=== PATIENT | male | born 1965 | race Caucasian/White ===

== ENCOUNTER 2018-03-09 15:54 | Observation (INO) ==
[2018-03-09] MEDS ORDERED: Sod Chloride 0.9% Inj 1,000 ML IV.SIG ONE (16:04)
--- NOTE | 2018-03-09 16:07 | ED ---
HPI General Chief Complaint: Overdose Stated Complaint: Imer Enriquez Time Seen by Provider: 03/09/18 15:58 Source: patient and EMS Mode of arrival: EMS Limitations: no limitations History of Present Illness HPI Narrative: He is homeless.The patient is a 52-year-old male that was brought in by EMS after ingesting Keppra 500 mg pills throughout the day in an attempt to commit suicide. Patient denies any symptoms at this time was on the street walking and flag down EMS to let them know what happened. He has past medical history significant for alcohol use disorder multiple psychiatric hospitalization with previous suicide attempts. Denies any hallucinations no dizziness no lightheadedness no nausea vomiting or diarrhea no other complaints. MD complaint: Reports intentional overdose Onset (ago): day(s) (through) Related Data Home Medications Medication Instructions Recorded Confirmed levetiracetam [Keppra] 500 mg PO BID 03/09/18 03/09/18 Allergies Allergy/AdvReac Type Severity Reaction Status Date / Time No Known Allergies Allergy Unknown Uncoded 10/23/17 04:45 Review of Systems ROS: all other systems reviewed are negative PMFSH History History Provided By: Patient, Medical Record and Bellman Captain / EMT Medical History Medical History History of traumatic brain injury (Acute) Seizure disorder (Acute) Surgical History Surgical History History of hip surgery (Acute) History of knee surgery (Acute) History of neck surgery (Acute) Family History Family History Other Family history normal Social History Social History Substance History: No History of Abuse Second Hand Smoke Exposure: Yes Smoking Status: Current every day smoker Tobacco Type: Cigarettes How Often Do You Have a Drink Containing Alcohol: 4 or more times a week Recent Travel in [facility] within the Last 8 Weeks: No Recent Out of Country Travel within the Last 8 Weeks: No Exam Narrative Exam Narrative: GENERAL: Alert and oriented no distress SKIN: Focused skin assessment warm/dry. HEAD: Atraumatic. Normocephalic. EYES: Pupils equal and round. No scleral icterus. No injection or drainage. ENT: No nasal bleeding or discharge. Mucous membranes pink and moist. NECK: Trachea midline. No JVD. CARDIOVASCULAR: Regular rate and rhythm. No murmur appreciated. RESPIRATORY: No accessory muscle use. Clear to auscultation. Breath sounds equal bilaterally. GASTROINTESTINAL: Abdomen soft, non-tender, nondistended. Hepatic and splenic margins not palpable. MUSCULOSKELETAL: No obvious deformities. No clubbing. No cyanosis. No edema. NEUROLOGICAL: Awake and alert. No obvious cranial nerve deficits. Motor grossly within normal limits. Normal speech. No tremors PSYCHIATRIC: Appropriate mood and affect; insight and judgment normal. Course Hospital Course: Patient monitored in the ED for several hours. To the fact that he did receive Keppra he will need to be monitored for at least 8 hours as per poison control recommendations. Not somnolent. Stable vitals. No EKG changes. Will admit medically for observation. Reevaluation(s) Reevaluation #1: Comfortably no distress no respiratory depression. Respirations 17/min. Time: 16:42 Consultations Consultation #1: Poison Control Center notified and at this time recommend supportive care admission and observation. Time: 16:13 Initial Documented Vital Signs Temperature 98.9 F 03/09/18 16:08 Pulse Rate 85 03/09/18 16:08 Respiratory Rate 17 03/09/18 16:08 Blood Pressure 175/92 H 03/09/18 16:08 Pulse Oximetry 98 03/09/18 16:08 Last Documented Vital Signs Temperature 98.5 F 03/10/18 03:58 Pulse Rate 71 03/10/18 03:58 Respiratory Rate 17 03/10/18 03:58 Blood Pressure 126/69 03/10/18 03:58 Pulse Oximetry 96 03/10/18 03:58 Critical Care Time Critical Care Time: Yes Total Critical Care Time: 30 Attestation: Aggregate critical care time was 30 minutes. Time to perform other separately billable procedures was not included in the critical care time. My time did not include minutes spent treating any other patients simultaneously or on activities that did not directly contribute to the patient's treatment. The services I provided to this patient were to treat and/or prevent clinically significant deterioration that could result in: I provided critical care services requiring my management, as noted below: Chart data review, documentation time, medication orders and management, vital sign assessments/reviewing monitor data, ordering and reviewing lab tests, ordering and interpreting/reviewing x-rays and diagnostic studies, care of the patient and discussion of the patient with the admitting physicians. Medical Decision Making MDM Narrative Medical decision making narrative: Patient with overdose of Keppra supportive care recommended by poison control center. Hemodynamically stable no QTc prolongation. No respiratory depression. Hydrated will be admitted under Malcolm act for psychiatric evaluation when medically cleared. Keppra level have been sent. No somnolence no respiratory distress no respiratory depression alert and oriented ambulating in the ED without any problems placed under Malcolm act and was admitted for monitoring at least 8 hours prior to psychiatric evaluation as per Poison Control Center recommendations Medical Screen Exam Complete: Yes Emergency Medical Condition: Yes Lab Data Lab results reviewed: Yes I reviewed the patient's lab results. Result diagrams: 03/10/18 04:40 03/10/18 04:40 Lab Results 03/09/18 03/09/18 03/09/18 Range/Units 16:20 16:20 16:20 WBC 10.9 (4.0-11.0) th/mm3 RBC 4.57 (4.50-5.90) mil/mm3 Hgb 14.2 (13.0-17.0) gm/dL Hct 40.9 (39.0-51.0) % MCV 89.5 (80.0-100.0) fL MCH 31.0 (27.0-34.0) pg MCHC 34.6 (32.0-36.0) % RDW 15.3 (11.6-17.2) % Plt Count 307 (150-450) th/mm3 MPV 7.0 (7.0-11.0) fL Neut % (Auto) 72.8 H (16.0-70.0) % Lymph % (Auto) 17.0 (9.0-44.0) % [place] % (Auto) 8.1 H (0.0-8.0) % Eos % (Auto) 1.5 (0.0-4.0) % Baso % (Auto) 0.6 (0.0-2.0) % Neut # (Auto) 7.9 H (1.8-7.7) th/mm3 Lymph # (Auto) 1.9 (1.0-4.8) th/mm3 [place] # (Auto) 0.9 (0.0-0.9) th/mm3 Eos # (Auto) 0.2 (0.0-0.4) th/mm3 Baso # (Auto) 0.1 (0.0-0.2) th/mm3 WBC Differential . Differential Comment Auto diff final Sodium 137 (136-145) meq/L Potassium 3.8 (3.5-5.1) meq/L Chloride 105 (98-107) meq/L Carbon Dioxide 22.8 (21.0-32.0) meq/L Anion Gap 9 (5-15) meq/L BUN 5 L (7-18) mg/dL Creatinine 0.75 (0.60-1.30) mg/dL Estimated GFR Greater than 89 (>89) mL/min Random Glucose 86 (74-106) mg/dL Calcium 8.6 (8.5-10.1) mg/dL Total Bilirubin 0.5 (0.2-1.0) mg/dL AST 29 (15-37) U/L ALT 20 (12-78) U/L Alkaline Phosphatase 59 (45-117) U/L Total Creatine Kinase 78 (39-308) U/L Total Protein 8.7 H (6.4-8.2) g/dL Albumin 3.6 (3.4-5.0) g/dL TSH 1.980 (0.358-3.740) uIU/mL Salicylates 3.4 (2.8-20.0) mg/dL Acetaminophen Less than 2.0 L (10.0-30.0) mcg/mL Serum Alcohol Less than 3 (0-5) mg/dL 03/10/18 03/10/18 Range/Units 04:40 04:40 WBC 8.7 (4.0-11.0) th/mm3 RBC 4.32 L (4.50-5.90) mil/mm3 Hgb 13.5 (13.0-17.0) gm/dL Hct 38.8 L (39.0-51.0) % MCV 89.9 (80.0-100.0) fL MCH 31.3 (27.0-34.0) pg MCHC 34.8 (32.0-36.0) % RDW 15.2 (11.6-17.2) % Plt Count 235 (150-450) th/mm3 MPV 7.6 (7.0-11.0) fL Neut % (Auto) 61.6 (16.0-70.0) % Lymph % (Auto) 26.0 (9.0-44.0) % [place] % (Auto) 9.9 H (0.0-8.0) % Eos % (Auto) 2.1 (0.0-4.0) % Baso % (Auto) 0.4 (0.0-2.0) % Neut # (Auto) 5.3 (1.8-7.7) th/mm3 Lymph # (Auto) 2.3 (1.0-4.8) th/mm3 [place] # (Auto) 0.9 (0.0-0.9) th/mm3 Eos # (Auto) 0.2 (0.0-0.4) th/mm3 Baso # (Auto) 0.0 (0.0-0.2) th/mm3 WBC Differential . Differential Comment Auto diff final Sodium 140 (136-145) meq/L Potassium 3.8 (3.5-5.1) meq/L Chloride 107 (98-107) meq/L Carbon Dioxide 25.1 (21.0-32.0) meq/L Anion Gap 8 (5-15) meq/L BUN 8 (7-18) mg/dL Creatinine 0.72 (0.60-1.30) mg/dL Estimated GFR Greater than 89 (>89) mL/min Random Glucose 90 (74-106) mg/dL Calcium 8.8 (8.5-10.1) mg/dL Total Bilirubin 0.5 (0.2-1.0) mg/dL AST 25 (15-37) U/L ALT 17 (12-78) U/L Alkaline Phosphatase 53 (45-117) U/L Total Creatine Kinase (39-308) U/L Total Protein 7.4 D (6.4-8.2) g/dL Albumin 3.0 L D (3.4-5.0) g/dL TSH (0.358-3.740) uIU/mL Salicylates (2.8-20.0) mg/dL Acetaminophen (10.0-30.0) mcg/mL Serum Alcohol (0-5) mg/dL Imaging Data Radiologist's impression: Chest X-Ray 03/09/18 16:02 CONCLUSION: No acute cardiopulmonary disease. Head CT 03/09/18 16:21 CONCLUSION: 1. Unremarkable and stable CT scan of the brain compared to the prior study. . Pelvis X-Ray 03/09/18 16:21 CONCLUSION: 1. No acute fracture or joint dislocation. 2. Left hip prosthesis in place. ECG Data Interpretation: Normal sinus rhythm with occasional PVCs 90 bpm MT interval 188 ms QTC 415 ms normal axis no signs of acute ischemia per Discharge Plan Discharge Disposition Patient Disposition: 30 Still Patient Discharge Condition Condition: Stable Discharge Details Diagnosis: Drug overdose, Suicide attempt Physicians Team ED Provider: Pete Lee Primary Care Provider: Primary Care Hafsa Zamora Attending Provider: Kathleen Willson Other Providers: Marvel Wood Status ED Status: Left Department Discharge Information Discharge Date/Time: 03/09/18 21:51
--- NOTE | 2018-03-09 16:36 | XR ---
EXAM DATE: 03/09/2018 4:02 PM EDT AGE/SEX: 52 years / Male INDICATIONS: Possible overdose, short of breath CLINICAL DATA: This is the patient's initial encounter. Patient reports that signs and symptoms have been present for 1 day and indicates a pain score of 0/10. MEDICAL/SURGICAL HISTORY: Cirrhosis. Hypertension. Seizures. Non-responsive. COMPARISON: No prior exams available for comparison. FINDINGS: A single AP view of the chest demonstrates the lungs to be symmetrically aerated without evidence of mass, infiltrate or effusion. The cardiomediastinal contours are unremarkable. Multiple left-sided r ib fractures, appears old CONCLUSION: No acute cardiopulmonary disease. Electronically signed by: Graham Arrington MD 03/09/2018 4:35 PM EDT
[2018-03-09 16:48] LABS: Baso # (Auto) 0.1 th/mm3 (0.0-0.2); Baso % (Auto) 0.6 % (0.0-2.0); Eos # (Auto) 0.2 th/mm3 (0.0-0.4); Eos % (Auto) 1.5 % (0.0-4.0); Hematocrit 40.9 % (39.0-51.0); Hemoglobin 14.2 gm/dL (13.0-17.0); Lymph # (Auto) 1.9 th/mm3 (1.0-4.8); Mean Corpuscular HGB Conc 34.6 % (32.0-36.0); Mean Corpuscular Volume 89.5 fL (80.0-100.0); Mono # (Auto) 0.9 th/mm3 (0.0-0.9); Mono % (Auto) 8.1 % (0.0-8.0); Neut # (Auto) 7.9 th/mm3 (1.8-7.7); Neut % (Auto) 72.8 % (16.0-70.0); Platelet Count 307 th/mm3 (150-450); Red Blood Count 4.57 mil/mm3 (4.50-5.90); Red Cell Distribution Width 15.3 % (11.6-17.2); White Blood Count 10.9 th/mm3 (4.0-11.0)
--- NOTE | 2018-03-09 16:56 | XR ---
EXAM DATE: 03/09/2018 4:21 PM EDT AGE/SEX: 52 years / Male INDICATIONS: Pelvic pain after fall. CLINICAL DATA: This is the patient's initial encounter. Patient reports that signs and symptoms have been present for 1 day and indicates a pain score of 2/10. MEDICAL/SURGICAL HISTORY: None. . Left hip replacement. COMPARISON: No prior exams available for comparison. FINDINGS: Examination of the pelvis demonstrates no evidence of fracture or dislocation. There is a left hip p rosthesis in place. There is good position alignment of the prosthesis. There is good alignment of th e SI joints and pubic symphysis. Bony mineralization is normal. There is no widening of the sacroili ac joints. No foreign body is identified. CONCLUSION: 1. No acute fracture or joint dislocation. 2. Left hip prosthesis in place. Electronically signed by: Cristino Billingsley MD 03/09/2018 4:54 PM EDT
[2018-03-09 17:16] LABS: Albumin 3.6 g/dL (3.4-5.0); Anion Gap 9 meq/L (5-15); Aspartate Aminotransferase 29 U/L (15-37); Blood Urea Nitrogen 5 mg/dL (7-18); Calcium 8.6 mg/dL (8.5-10.1); Carbon Dioxide 22.8 meq/L (21.0-32.0); Chloride 105 meq/L (98-107); Glomerular Filtration Rate Greater Than 89 mL/min (>89); Glucose,Random 86 mg/dL (74-106); Potassium 3.8 meq/L (3.5-5.1); Sodium 137 meq/L (136-145)
[2018-03-09 17:28] LABS: Alanine Aminotransferase 20 U/L (12-78); Alkaline Phosphatase 59 U/L (45-117); Total Protein 8.7 g/dL (6.4-8.2)
[2018-03-09 17:29] LABS: Creatine Kinase 78 U/L (39-308)
--- NOTE | 2018-03-09 17:35 | CT ---
EXAM DATE: 03/09/2018 4:25 PM EDT AGE/SEX: 52 years / Male INDICATIONS: Fall hit head contusion CLINICAL DATA: This is the patient's initial encounter. Patient reports that signs and symptoms have been present for 1 day and indicates a pain score of 2/10. MEDICAL/SURGICAL HISTORY: None. None. RADIATION DOSE: 56.35 CTDI (mGy) COMPARISON: [facility] [place], 01/17/2017. . TECHNIQUE: CT of the head without contrast. Using automated exposure control and adjustment of the mA and/or kV according to patient size, radiation dose was kept as low as reasonably achievable to ob tain optimal diagnostic quality images. DICOM format image data is available electronically for revi ew and comparison. FINDINGS: Cerebrum: The ventricles are normal for age. No evidence of midline shift, mass lesion, hemorrhage or acute infarction. No extraaxial fluid collections are seen. Posterior Fossa: The cerebellum and brainstem are intact. The 4th ventricle is midline. The cerebe llopontine angle is unremarkable. Extracranial: The visualized portion of the orbits is intact. Skull: The calvaria is intact. No evidence of skull fracture. CONCLUSION: 1. Unremarkable and stable CT scan of the brain compared to the prior study. . Electronically signed by: Cristino Billingsley MD 03/09/2018 5:33 PM EDT
[2018-03-09] MEDS ORDERED: Bisacodyl 10 MG Supp RECTAL PRN (19:46)
--- NOTE | 2018-03-09 19:53 | P.HP ---
History of Present Illness Service: [facility] Primary Care Physician: No Primary Care Physician History of Present Illness: 52-year-old male with a past medical history significant for previous TBI and seizure disorder presents to the emergency department for evaluation of an intentional overdose. The patient reports he took approximately 70 pills of 500 mg Keppra. He states he was attempting to kill himself. The patient says that he wants to because of his situation and states that the government is responsible. He reports he has body aches "all over." He denies any chest pain or shortness of breath. No abdominal pain. No nausea/vomiting/diarrhea. No fevers/chills. No lateralizing signs/symptoms. Review of Systems All other systems reviewed negative except as stated in HPI PMFSH - History History Provided By: Patient, Medical Record, Air Conditioning Service Technician / EMT - Medical History Medical History: Medical History (Last Updated 03/09/18 @ 19:51 by Shannon Godoy MD) History of traumatic brain injury Seizure disorder - Surgical History Surgical History: Surgical History (Last Updated 03/09/18 @ 19:51 by Shannon Godoy MD) History of hip surgery History of knee surgery History of neck surgery - Family History Family History: Family History (Last Updated 03/09/18 @ 19:51 by Shannon Godoy MD) Other Family history normal - Tobacco History Second Hand Smoke Exposure: Yes Tobacco Use In Past 30 Days: Yes Smoking Status: Current every day smoker Tobacco Type: Cigarettes - Alcohol History How Often Do You Have a Drink Containing Alcohol: 4 or more times a week - Substance Use History Substance History: No History of Abuse - Travel History Recent Travel in the [facility] Within the Last 8 Weeks: No Recent Travel Out of the Country Within the Last 8 Weeks: No - Immunization History Tetanus Immunization: Unsure Medications and Allergies Active Medications: Active Medications Al Hydroxide/Mg Hydroxide (Milk Of Magnesia Liq) 30 ml PO Q12H PRN PRN Reason: Mild Constipation Bisacodyl (Dulcolax Supp) 10 mg RECTAL DAILY PRN PRN Reason: SEVERE CONSITIPATION Lactulose (Lactulose Liq) 30 ml PO DAILY PRN PRN Reason: SEVERE CONSITIPATION Allergies Allergy/AdvReac Type Severity Reaction Status Date / Time No Known Allergies Allergy Unknown Uncoded 10/23/17 04:45 Exam Vital signs: Vital Signs 03/09/18 16:08 03/09/18 17:55 Temperature 98.9 F Pulse Rate 85 75 Respiratory Rate 17 17 Blood Pressure 175/92 H 175/92 H Pulse Oximetry 98 100 Intake & Output 03/09/18 03/09/18 03/10/18 06:59 18:59 06:59 Weight 81.647 kg Narrative: Gen.: No acute distress Head: Normocephalic. Atraumatic. EENT: Pupils equal round and reactive to light. Nose without drainage. Airway intact. Throat without injection. Cardiovascular: Regular rate and rhythm. No murmurs, rubs or gallops. Respiratory: Lungs clear to auscultation bilaterally. No wheezes or rhonchi. Abdomen: Soft, nontender, nondistended. No peritoneal signs. Musculoskeletal: No gross deformities. No edema. Skin: No obvious rashes or erythema. Neuro: Sensory and motor grossly intact. Cranial nerves II through XII grossly intact. Results - Labs CBC & Chem 7: 03/09/18 16:20 03/09/18 16:20 Labs: Laboratory Results - last 24 hr 03/09/18 03/09/18 03/09/18 16:20 16:20 16:20 WBC 10.9 RBC 4.57 Hgb 14.2 Hct 40.9 MCV 89.5 MCH 31.0 MCHC 34.6 RDW 15.3 Plt Count 307 MPV 7.0 Neut % (Auto) 72.8 H Lymph % (Auto) 17.0 [place] % (Auto) 8.1 H Eos % (Auto) 1.5 Baso % (Auto) 0.6 Neut # (Auto) 7.9 H Lymph # (Auto) 1.9 [place] # (Auto) 0.9 Eos # (Auto) 0.2 Baso # (Auto) 0.1 WBC Differential . Differential Comment Auto diff final Sodium 137 Potassium 3.8 Chloride 105 Carbon Dioxide 22.8 Anion Gap 9 BUN 5 L Creatinine 0.75 Estimated GFR Greater than 89 Random Glucose 86 Calcium 8.6 Total Bilirubin 0.5 AST 29 ALT 20 Alkaline Phosphatase 59 Total Creatine Kinase 78 Total Protein 8.7 H Albumin 3.6 TSH 1.980 Salicylates 3.4 Acetaminophen Less than 2.0 L Serum Alcohol Less than 3 - Imaging Impressions Chest X-Ray 03/09/18 16:02 CONCLUSION: No acute cardiopulmonary disease. Head CT 03/09/18 16:21 CONCLUSION: 1. Unremarkable and stable CT scan of the brain compared to the prior study. . Pelvis X-Ray 03/09/18 16:21 CONCLUSION: 1. No acute fracture or joint dislocation. 2. Left hip prosthesis in place. Caprini VTE Risk Assessment Caprini VTE Risk Assessment: No/Low Risk (score <= 1) Caprini Risk Assessment Model: Point Value = 1 Point Value = 2 Point Value = 3 Point Value = 5 Age 41-60 Minor surgery BMI > 25 kg/m2 Swollen legs Varicose veins or History of unexplained or recurrent spontaneous Oral contraceptives or hormone replacement Sepsis (< 1 month) Serious lung disease, including pneumonia (< 1 month) Abnormal pulmonary function Acute myocardial infarction Congestive heart failure (< 1 month) History of inflammatory bowel disease Medical patient at bed rest Age 61-74 Arthroscopic surgery Major open surgery (> 45 min) Laparoscopic surgery (> 45 min) Malignancy Confined to bed (> 72 hours) Immobilizing plaster cast Central venous access Age >= 75 History of VTE Family history of VTE Factor V Leiden Prothrombin [id number] Lupus anticoagulant Anticardiolipin antibodies Elevated serum homocysteine Heparin-induced thrombocytopenia Other congenital or acquired thrombophilia Stroke (< 1 month) Elective arthroplasty Hip, pelvis, or leg fracture Acute spinal cord injury (< 1 month) Prophylaxis Regimen: Total Risk Factor Score Risk Level Prophylaxis Regimen 0-1 Low Early ambulation 2 Moderate Order ONE of the following: *Sequential Compression Device (SCD) *Heparin 5000 units SQ BID 3-4 Higher Order ONE of the following medications: *Heparin 5000 units SQ TID *Enoxaparin/Lovenox 40 mg SQ daily (WT < 150 kg, CrCl > 30 mL/min) *Enoxaparin/Lovenox 30 mg SQ daily (WT < 150 kg, CrCl > 10-29 mL/min) *Enoxaparin/Lovenox 30 mg SQ BID (WT < 150 kg, CrCl > 30 mL/min) AND/OR *Sequential Compression Device (SCD) 5 or more Highest Order ONE of the following medications: *Heparin 5000 units SQ TID (Preferred with Epidurals) *Enoxaparin/Lovenox 40 mg SQ daily (WT < 150 kg, CrCl > 30 mL/min) *Enoxaparin/Lovenox 30 mg SQ daily (WT < 150 kg, CrCl > 10-29 mL/min) *Enoxaparin/Lovenox 30 mg SQ BID (WT < 150 kg, CrCl > 30 mL/min) AND *Sequential Compression Device (SCD) Assessment and Plan - Plan Assessment/plan: 1. Intentional overdose/suicidal ideation Patient reports he is still actively suicidal Sitter Psychiatry consulted, appreciate assistance Poison control contacted for Keppra overdose and recommended supportive care and observation Keppra level pending 2. Seizure disorder Holding home Keppra Monitor FEN Regular diet Electrolytes: Monitor and replete as needed
[2018-03-09] MEDS: Senna/Docusate Sodium 8.6/50 MG Tablet PO SCH (22:01)
[2018-03-10 06:23] LABS: Baso % (Auto) 0.4 % (0.0-2.0); Eos # (Auto) 0.2 th/mm3 (0.0-0.4); Eos % (Auto) 2.1 % (0.0-4.0); Hematocrit 38.8 % (39.0-51.0); Hemoglobin 13.5 gm/dL (13.0-17.0); Lymph # (Auto) 2.3 th/mm3 (1.0-4.8); Mean Corpuscular HGB Conc 34.8 % (32.0-36.0); Mean Corpuscular Hemoglobin 31.3 pg (27.0-34.0); Mean Corpuscular Volume 89.9 fL (80.0-100.0); Mean Platelet Volume 7.6 fL (7.0-11.0); Mono # (Auto) 0.9 th/mm3 (0.0-0.9); Mono % (Auto) 9.9 % (0.0-8.0); Neut # (Auto) 5.3 th/mm3 (1.8-7.7); Neut % (Auto) 61.6 % (16.0-70.0); Platelet Count 235 th/mm3 (150-450); Red Blood Count 4.32 mil/mm3 (4.50-5.90); Red Cell Distribution Width 15.2 % (11.6-17.2); White Blood Count 8.7 th/mm3 (4.0-11.0)
[2018-03-10 06:48] LABS: Alanine Aminotransferase 17 U/L (12-78); Alkaline Phosphatase 53 U/L (45-117); Anion Gap 8 meq/L (5-15); Aspartate Aminotransferase 25 U/L (15-37); Blood Urea Nitrogen 8 mg/dL (7-18); Calcium 8.8 mg/dL (8.5-10.1); Carbon Dioxide 25.1 meq/L (21.0-32.0); Chloride 107 meq/L (98-107); Glomerular Filtration Rate Greater Than 89 mL/min (>89); Glucose,Random 90 mg/dL (74-106); Potassium 3.8 meq/L (3.5-5.1); Sodium 140 meq/L (136-145); Total Protein 7.4 g/dL (6.4-8.2)
[2018-03-10 08:28] VITALS: RESP 16; TEMP 98.3
--- NOTE | 2018-03-10 09:35 | P.PNIM ---
Subjective Interval history: f/u; suicidal attempt in no acute distress. looks comfortable. says that still has some suicidal thoughts. Physical Exam Vital signs: Vital Signs 03/09/18 16:08 03/09/18 17:55 03/09/18 20:00 Temperature 98.9 F 98.6 F Pulse Rate 85 75 80 Respiratory Rate 17 17 17 Blood Pressure 175/92 H 175/92 H 113/66 Pulse Oximetry 98 100 97 03/10/18 00:00 03/10/18 03:58 03/10/18 04:22 Temperature 98.7 F 98.5 F Pulse Rate 70 71 67 Respiratory Rate 17 17 Blood Pressure 119/70 126/69 Pulse Oximetry 96 96 03/10/18 08:00 Temperature 98.3 F Pulse Rate 72 Respiratory Rate 16 Blood Pressure 121/75 Pulse Oximetry 96 Intake & Output 03/09/18 03/10/18 03/10/18 18:59 06:59 18:59 Intake Total 1150 / 1150 Balance 1150 / 1150 Weight 81.647 kg 81.647 kg Intake: IV 1000 / 1000 Oral 150 / 150 Other: # Voids 1 Weight On Admission 81.647 kg - Constitutional no acute distress - Routine Respiratory Exam Present: CTA bilaterally - Routine Cardiovascular Exam Present: RRR - Routine Abdominal Exam Present: soft - Routine Extremities Exam Comments: no pedal edema. - Routine Neurological Exam Present: alert, oriented X3 Results - Labs CBC & Chem 7: 03/10/18 04:40 03/10/18 04:40 Laboratory Results - last 24 hr 03/09/18 03/09/18 03/09/18 16:20 16:20 16:20 WBC 10.9 RBC 4.57 Hgb 14.2 Hct 40.9 MCV 89.5 MCH 31.0 MCHC 34.6 RDW 15.3 Plt Count 307 MPV 7.0 Neut % (Auto) 72.8 H Lymph % (Auto) 17.0 [place] % (Auto) 8.1 H Eos % (Auto) 1.5 Baso % (Auto) 0.6 Neut # (Auto) 7.9 H Lymph # (Auto) 1.9 [place] # (Auto) 0.9 Eos # (Auto) 0.2 Baso # (Auto) 0.1 WBC Differential . Differential Comment Auto diff final Sodium 137 Potassium 3.8 Chloride 105 Carbon Dioxide 22.8 Anion Gap 9 BUN 5 L Creatinine 0.75 Estimated GFR Greater than 89 Random Glucose 86 Calcium 8.6 Total Bilirubin 0.5 AST 29 ALT 20 Alkaline Phosphatase 59 Total Creatine Kinase 78 Total Protein 8.7 H Albumin 3.6 TSH 1.980 Salicylates 3.4 Acetaminophen Less than 2.0 L Serum Alcohol Less than 3 03/10/18 03/10/18 04:40 04:40 WBC 8.7 RBC 4.32 L Hgb 13.5 Hct 38.8 L MCV 89.9 MCH 31.3 MCHC 34.8 RDW 15.2 Plt Count 235 MPV 7.6 Neut % (Auto) 61.6 Lymph % (Auto) 26.0 [place] % (Auto) 9.9 H Eos % (Auto) 2.1 Baso % (Auto) 0.4 Neut # (Auto) 5.3 Lymph # (Auto) 2.3 [place] # (Auto) 0.9 Eos # (Auto) 0.2 Baso # (Auto) 0.0 WBC Differential . Differential Comment Auto diff final Sodium 140 Potassium 3.8 Chloride 107 Carbon Dioxide 25.1 Anion Gap 8 BUN 8 Creatinine 0.72 Estimated GFR Greater than 89 Random Glucose 90 Calcium 8.8 Total Bilirubin 0.5 AST 25 ALT 17 Alkaline Phosphatase 53 Total Creatine Kinase Total Protein 7.4 D Albumin 3.0 L D TSH Salicylates Acetaminophen Serum Alcohol - Imaging Impressions Chest X-Ray 03/09/18 16:02 CONCLUSION: No acute cardiopulmonary disease. Head CT 03/09/18 16:21 CONCLUSION: 1. Unremarkable and stable CT scan of the brain compared to the prior study. . Pelvis X-Ray 03/09/18 16:21 CONCLUSION: 1. No acute fracture or joint dislocation. 2. Left hip prosthesis in place. Assessment and Plan - Plan 1. Intentional overdose/suicidal ideation Patient reports he is still actively suicidal Sitter Psychiatry consulted, appreciate assistance Poison control contacted for Keppra overdose and recommended supportive care and observation Keppra level pending 2. Seizure disorder Holding home Keppra Monitor FEN Regular diet Electrolytes: Monitor and replete as needed Discharge Planning: pending psych evaluation and keppra level.
--- NOTE | 2018-03-10 11:00 | ECG ---
Date Performed: 03/09/2018 Time Performed: 16:37:16 PTAGE: 52 years EKG: Sinus rhythm WITH OCCASIONAL VENTRICULAR PREMATURE COMPLEXES BORDERLINE ECG PREVIOUS TRACING : 01/17/2017 12.14 DOCTOR: Cleve Hernandez Interpretating Date/Time 03/10/2018 10:59:49
--- NOTE | 2018-03-10 11:29 | P.CONPSY ---
Provisional Diagnosis Admission Date: March 09, 2018 19:26 Boon I.: Adjustment disorder with depressed mood, alcohol use disorder, R/O conscious simulation with secondary gain of use in the hospital as a nursing home Boon II.: Cluster B traits History of Present Illness Service: Medicine Primary Care Provider: No Primary Care Physician Family Provider: No Primary Care Physician History of Present Illness: The patient is 52-year-old man, homeless in the [facility] area, , unemployed, on SSI process, with a psychiatric history of depression, adjustment disorder with depression, alcohol use disorder, 1 previous psychiatric hospitalization here in [place] in September 2017 under the care of Dr. Brunson, documentation review, previous suicidal attempts, self cutting behavior without SI, with a past medical history significant for previous TBI and seizure disorder presents to the emergency department for evaluation of an intentional overdose with suicidal intention. The patient reports he took approximately 70 pills of 500 mg Keppra. He states he was attempting to kill himself. The patient says that he wants to because of his situation and states that the government is responsible. He reports that he is willing to diet he has no reason to live for. Evaluation the patient keeps quite irritable and oppositional. Stating that nobody is able to helping anymore. He says that he was recently removed from [facility] and now he has no money and rhythm insurance. He reports that he has too many problems in his body to be able to work and at this point he does not have any friends or family member to help him. He reports suicidal ideation with a plan of overdosing again or jumping in front of a car. Patient reports that he is very pessimistic about her life, he does not see a future anymore, he has no motivation to get up and 5 for anything, he has not slept in the last 5 days at all, and all he has a his mind is killing himself. PPHx: Depression, adjustment disorder with depression, alcohol use disorder, 1 previous psychiatric hospitalization here in [place] PMHx: TBI, seizures Family Hx: No family psychiatric Substance Hx: Patient reports almost daily use of alcohol, 3 or 4 beers Social Hx: Patient was born and raised in [facility], he is homeless, , unemployed, on SSI process Review of Systems All other systems reviewed negative except as stated in HPI Psychiatric: Reports depression, Reports hopelessness, Reports irritability, Reports mood swings, Reports thoughts of hurting/killing yourself PMF - History History Provided By: Patient, Medical Record, Behavioral Science Chair / EMT - Medical History Medical History: Medical History (Last Updated 03/09/18 @ 19:51 by Shannon Godoy MD) History of traumatic brain injury Seizure disorder - Surgical History Surgical History: Surgical History (Last Updated 03/09/18 @ 19:51 by Shannon Godoy MD) History of hip surgery History of knee surgery History of neck surgery - Family History Family History: Family History (Last Updated 03/09/18 @ 19:51 by Shannon Godoy MD) Other Family history normal - Tobacco History Second Hand Smoke Exposure: Yes Tobacco Use In Past 30 Days: Yes Smoking Status: Current every day smoker Tobacco Type: Cigarettes - Alcohol History How Often Do You Have a Drink Containing Alcohol: 4 or more times a week - Substance Use History Substance History: No History of Abuse - Travel History Recent Travel in the [place] Within the Last 8 Weeks: No Recent Travel Out of the Country Within the Last 8 Weeks: No - Immunization History Tetanus Immunization: Unsure Medications and Allergies Active Medications: Active Medications Al Hydroxide/Mg Hydroxide (Milk Of Magnesia Liq) 30 ml PO Q12H PRN PRN Reason: Mild Constipation Bisacodyl (Dulcolax Supp) 10 mg RECTAL DAILY PRN PRN Reason: SEVERE CONSITIPATION Lactulose (Lactulose Liq) 30 ml PO DAILY PRN PRN Reason: SEVERE CONSITIPATION Ondansetron HCl (Zofran Inj) 4 mg IV.PUSH Q6H PRN PRN Reason: NAUSEA OR VOMITING Senna/Docusate Sodium (Nancy-Colace) 1 tab PO BID RADHA Last Admin: 03/09/18 22:01 Dose: Not Given Sennosides (Senokot) 17.2 mg PO Q12H PRN PRN Reason: Moderate Constipation Allergies Allergy/AdvReac Type Severity Reaction Status Date / Time No Known Allergies Allergy Unknown Uncoded 10/23/17 04:45 Home Medications Medication Instructions Recorded Confirmed Type levetiracetam [Keppra] 500 mg PO BID 03/09/18 03/09/18 History Exam Vital signs: Vital Signs 03/09/18 16:08 03/09/18 17:55 03/09/18 20:00 Temperature 98.9 F 98.6 F Pulse Rate 85 75 80 Respiratory Rate 17 17 17 Blood Pressure 175/92 H 175/92 H 113/66 Pulse Oximetry 98 100 97 03/10/18 00:00 03/10/18 03:58 03/10/18 04:22 Temperature 98.7 F 98.5 F Pulse Rate 70 71 67 Respiratory Rate 17 17 Blood Pressure 119/70 126/69 Pulse Oximetry 96 96 03/10/18 08:00 Temperature 98.3 F Pulse Rate 72 Respiratory Rate 16 Blood Pressure 121/75 Pulse Oximetry 96 Intake & Output 03/09/18 03/10/18 03/10/18 18:59 06:59 18:59 Intake Total 1150 / 1150 Balance 1150 / 1150 Weight 81.647 kg 81.647 kg Intake: IV 1000 / 1000 Oral 150 / 150 Other: # Voids 1 Weight On Admission 81.647 kg - Constitutional moderate distress - Routine HEENT Exam Head: Present: normocephalic, atraumatic Eye: Present: EOMI, PERRL ENT: Present: mucous membranes moist Mental Status Examination Appearance: Appropriate Consciousness: Alert Orientation: x4 Motor Activity: Normal gait Speech: Unremarkable Language: Adequate Fund of Knowledge: Adequate Attention and Concentration: Adequate Memory: Unremarkable Mood: Angry, Sad Affect: Sad Thought Process & Associations: Intact Thought Content: Appropriate Hallucination Type: None Delusion Type: None Suicidal Ideation: Yes Suicidal Plan: Yes Suicidal Intention: No Homicidal Ideation: No Homicidal Plan: No Homicidal Intention: No Insight: Poor Judgment: Poor Assessment and Plan - Assessment (1) Acute adjustment disorder Code(s): F43.20 - Adjustment disorder, unspecified Status: Acute - Plan Plan: Estimated LOS: [] days On psychiatric evaluation the patient is irritable, oppositional, poorly cooperative, very upset stating that he just want to and unless we go to help him with all his problems please leave him alone. The patient has allegedly overdose with about 70 pills of Keppra with suicidal intentions. He reports that he was recently removed from his SSI, and he has now no resources to buy his medications, to pay for rent, and he has no family and no social support. The patient reports increased sense of depression, anhedonia, hopelessness, helplessness, worthlessness, he says that he has not sleep in the last 5 days, he has not been taking his medical medications, and he has suicidal intentions with a plan of overdosing or jumping in front of a car. There is a patient with a psychiatric history of depression, adjustment disorder with depression, severe alcohol use disorder, 1 previous psychiatric hospitalization here in [place] in October 2017. At this moment the patient has elevated risk of danger to self, he will be admitted in psychiatry for stabilization and safety. Current presentation could be etiologically related with adjustment disorder, but a primary mood disorder needs to be rule out, as well as secondary gain. Also cluster B traits are identified during this evaluation. No psychotropics indicated at this moment, other than CIWA protocol , but the patient is medically clear. Please transfer patient to psychiatry, 2700 unit once medically cleared Justification for Continued Inpatient Stay: Admission indicated.
[2018-03-10] MEDS: Senna/Docusate Sodium 8.6/50 MG Tablet PO SCH (11:38)
[2018-03-10 11:41] VITALS: BP 155/81; PULSE 76; O2SAT 97
--- NOTE | 2018-03-10 11:45 | P.PNADD ---
Addendum to Inpatient Note Reason for Addendum: Additional Documentation (psych evaluation appreciated. case was d/w poison control today; recommended that the patient to be started back on his home keppra dosage from tomorrow while awaiting the Keppra level- patient is medically clear for discharge to the psych unit.)
== END 2018-03-10 15:00 ==
LOC: NEPC 15:54 → NEDA 15:54 → NEPGCP 21:21
PROVIDERS: ADMIT Internal Medicine; ATTEND Internal Medicine

== ENCOUNTER 2018-03-10 13:34 | Inpatient (IN) ==
[2018-03-10] MEDS ORDERED: Aluminum/Magnesium/Simethacone Susp 30 ML UDC PO PRN (16:07)
[2018-03-10] MEDS ORDERED: Haloperidol Inj 5 MG/ML Ampul IV.PUSH PRN (16:07)
[2018-03-10] MEDS ORDERED: LORazepam 1 MG Tablet PO PRN (16:07)
[2018-03-10] MEDS ORDERED: Bisacodyl 10 MG Supp RECTAL PRN (16:07)
[2018-03-10] MEDS ORDERED: Senna/Docusate Sodium 8.6/50 MG Tablet PO SCH (21:00)
[2018-03-11 09:23] LABS: Anion Gap 8 meq/L (5-15); Blood Urea Nitrogen 10 mg/dL (7-18); Carbon Dioxide 24.3 meq/L (21.0-32.0); Chloride 106 meq/L (98-107); Cholesterol 102 mg/dL (120-200); Glomerular Filtration Rate Greater Than 89 mL/min (>89); Glucose,Random 139 mg/dL (74-106); Potassium 3.9 meq/L (3.5-5.1); Sodium 138 meq/L (136-145)
[2018-03-11 09:34] LABS: Chol/HDL Ratio 3.68 Ratio; HDL Cholesterol 27.7 mg/dL (40.0-60.0); LDL Cholesterol,Calculated 61 mg/dL (0-99); Triglycerides 68 mg/dL (42-150)
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
[2018-03-11] MEDS: Sertraline 50 MG Tablet PO SCH (12:12)
[2018-03-11] MEDS: levETIRAcetam 500 MG Tablet PO SCH ×2 (12:13→20:14)
[2018-03-11 12:38] LABS: Hemoglobin A1c 4.9 % (4.3-6.0)
--- NOTE | 2018-03-11 17:18 | P.CON ---
History of Present Illness Consult date: 03/11/18 Requesting Physician: Bob Vigil Reason for Consult: Medical management Primary Care Provider: UNKNOWN Chief Complaint: consulted for medical management History of Present Illness: I have been asked for consult of this pleasant patient who was admitted to the floor after he took Keppra with suicidal intentions admitted to Psychiatric unit with diagnosis of Adjustment disorder with depressed mood, Rule-out conscious simulation for [place] [facility] [place] and/or to bolster disability application, Alcohol use disorder, Some antisocial personality traits, he was initially admitted with history of 52-year-old male with a past medical history significant for previous TBI and seizure disorder presents to the emergency department for evaluation of an intentional overdose. The patient reports he took approximately 70 pills of 500 mg Keppra. He states he was attempting to kill himself. The patient says that he wants to because of his situation and states that the government is responsible. He reports he has body aches "all over." He denies any chest pain or shortness of breath. No abdominal pain. No nausea/vomiting/ diarrhea. No fevers/chills. No lateralizing signs/symptoms. Seen in Psychiatric unit no complaint, and evaluated Laboratory and vital signs. 03/09/18 03/09/18 03/09/18 16:20 16:20 16:20 WBC 10.9 RBC 4.57 Hgb 14.2 Hct 40.9 MCV 89.5 MCH 31.0 MCHC 34.6 RDW 15.3 Plt Count 307 MPV 7.0 Neut % (Auto) 72.8 H Lymph % (Auto) 17.0 Bartholomew % (Auto) 8.1 H Eos % (Auto) 1.5 Baso % (Auto) 0.6 Neut # (Auto) 7.9 H Lymph # (Auto) 1.9 Bartholomew # (Auto) 0.9 Eos # (Auto) 0.2 Baso # (Auto) 0.1 WBC Differential . Differential Comment Auto diff final Sodium 137 Potassium 3.8 Chloride 105 Carbon Dioxide 22.8 Anion Gap 9 BUN 5 L Creatinine 0.75 Estimated GFR Greater than 89 Random Glucose 86 Calcium 8.6 Total Bilirubin 0.5 AST 29 ALT 20 Alkaline Phosphatase 59 Total Creatine Kinase 78 Total Protein 8.7 H Albumin 3.6 TSH 1.980 Salicylates 3.4 Acetaminophen Less than 2.0 L Serum Alcohol Less than 3 - Imaging Impressions Chest X-Ray 03/09/18 16:02 CONCLUSION: No acute cardiopulmonary disease. Head CT 03/09/18 16:21 CONCLUSION: 1. Unremarkable and stable CT scan of the brain compared to the prior study. . Pelvis X-Ray 03/09/18 16:21 CONCLUSION: 1. No acute fracture or joint dislocation. 2. Left hip prosthesis in place. Review of Systems All other systems reviewed negative except as stated in HPI [facility] - History History Provided By: Patient - Medical History Medical History: Medical History (Last Updated 03/09/18 @ 19:51 by Shannon Godoy MD) History of traumatic brain injury Seizure disorder - Surgical History Surgical History: Surgical History (Last Updated 03/09/18 @ 19:51 by Shannon Godoy MD) History of hip surgery History of knee surgery History of neck surgery - Family History Family History: Family History (Last Updated 03/09/18 @ 19:51 by Shannon Godoy MD) Other Family history normal - Tobacco History Second Hand Smoke Exposure: Yes Tobacco Use In Past 30 Days: Yes Smoking Status: Light tobacco smoker Tobacco Type: Cigarettes - Alcohol History How Often Do You Have a Drink Containing Alcohol: 2 to 3 times a week - Substance Use History Substance History: No History of Abuse - Immunization History Tetanus Immunization: <5 Years Hx Influenza Vaccine This Season: Yes Medications and Allergies Active Medications: Active Medications Al Hydrox/Mg Hydrox/Simethicone (Mag-Al Plus Susp Liq) 30 ml PO Q6H PRN PRN Reason: DYSPEPSIA Al Hydroxide/Mg Hydroxide (Milk Of Magnesia Liq) 30 ml PO Q12H PRN PRN Reason: Mild Constipation Flumazenil (Romazecon Inj) 0.2 mg IV.PUSH Q1M PRN PRN Reason: OVERSEDATION Haloperidol Lactate (Haldol Inj) 1 mg IV.PUSH Q15M PRN PRN Reason: for severe agitation Hydroxyzine HCl (Atarax) 25 mg PO Q6H PRN PRN Reason: ANXIETY Levetiracetam (Keppra) 500 mg PO BID RADHA Last Admin: 03/11/18 12:13 Dose: 500 mg Lorazepam (Ativan) 1 mg PO Q4H PRN PRN Reason: for CIWA 8-10 Lorazepam (Ativan) 2 mg PO Q2H PRN PRN Reason: for CIWA 11-14 Lorazepam (Ativan Inj) 2 mg IV.PUSH Q2H PRN PRN Reason: for CIWA 11-14 Lorazepam (Ativan Inj) 2 mg IV.PUSH Q1H PRN PRN Reason: for CIWA 15-20 Lorazepam (Ativan Inj) 2 mg IV.PUSH Q15M PRN PRN Reason: for CIWA > 20 Lorazepam (Ativan Inj) 1 mg IV.PUSH Q4H PRN PRN Reason: for CIWA 8-10 Melatonin (Melatonin) 5 mg PO HS PRN PRN Reason: INSOMNIA Sertraline HCl (Zoloft) 50 mg PO DAILY RADHA Last Admin: 03/11/18 12:12 Dose: 50 mg Allergies Allergy/AdvReac Type Severity Reaction Status Date / Time No Known Allergies Allergy Unknown Uncoded 10/23/17 04:45 Home Medications Medication Instructions Recorded Confirmed Type levetiracetam [Keppra] 500 mg PO BID 03/09/18 03/09/18 History Physical Exam Vital signs: Vital Signs 03/10/18 18:00 03/11/18 06:24 Temperature 98.4 F 97.3 F L Pulse Rate 80 72 Respiratory Rate 18 17 Blood Pressure 121/71 119/73 Pulse Oximetry 98 Intake & Output 03/10/18 03/11/18 03/11/18 18:59 06:59 18:59 Weight 95.8 kg 96.4 kg Other: Weight On Admission 95.8 kg Narrative: GENERAL: This is a well-nourished, well-developed patient, in no apparent distress. CARDIOVASCULAR: Regular rate and rhythm without murmurs, gallops, or rubs. RESPIRATORY: Clear to auscultation. Breath sounds equal bilaterally. No wheezes , rales, or rhonchi. GASTROINTESTINAL: Abdomen soft, non-tender, nondistended. Normal active bowel sounds MUSCULOSKELETAL: Extremities without clubbing, cyanosis, or edema. NEURO: Alert & Oriented x4 to person, place, time, situation. Moves all ext x4 Assessment and Plan - Plan 1. Adjustment disorder with depressed mood/Rule-out conscious simulation for [place] [facility] [place] and/or to bolster disability application/Alcohol use disorder/Some antisocial personality traits continue Psychiatric Management. 2. TBI/Seizure disorder to continue Keppra. Examined Laboratory and vital signs, Imaging studies included CT brain at this time no further recommendations will sign off the case sean as needed. FEN Regular diet Code Status: Full code. Discussed Condition With: Patient and Nurse Miss Pat in the room, present at all times while I was in the unit. appreciated Discharge Planning: as per Attending physician.
[2018-03-12] MEDS: Sertraline 50 MG Tablet PO SCH (08:51)
[2018-03-12] MEDS: levETIRAcetam 500 MG Tablet PO SCH ×2 (08:51→20:34)
--- NOTE | 2018-03-12 09:29 | P.TTN ---
- Patient Problems Problems: 1. Discharge planning 2. Medication compliance 3. Knowledge deficit 4. Lack of coping skills - Progress Toward Goals Provider Present: Dr. Eddie Vigil (Patient overdosed on Keppra, appears to be possibly malingering, patient presents as oppositional with a history of alcohol abuse. Dr. Vigil started patient on antidepressant Zoloft medication. ) Psychiatric Counselors Present: Jose Viramontes Jr., [facility] (Patient is new to this counselor. Counselor will meet with the patient to discuss a discharge disposition, medical records indicate the patient arrived homeless. Counselor will discuss safe housing options with the patient today) Group Spec/RT/OT/DIOP Present: JADON Martinez (Select group) - Documentation Teaching Recipient: Patient
--- NOTE | 2018-03-12 10:00 | P.PNPSY ---
Subjective Chief Complaint: Malcolm Act Remarks: Patient seen and examined with nurse. Chart reviewed. No Ativan required by CIWA scale. No signs of withdrawal on my examination. Case discussed with nursing staff. No behavioral issues noted overnight. Case discussed in treatment team. On my examination this morning the patient remains dysphoric. He denies any suicidal ideation on the inpatient unit but continues to insinuate that he might have some thoughts of self-harm in a less restrictive setting. Continues to harbor a grudge against the government and social security/Medicaid in particular but no threats of violence against those organizations. Denies side effects from medications. No physical complaints. Vital Signs Temp Pulse Resp BP Pulse Ox 03/12/18 06:38 97.2 F L 67 16 132/71 98 03/11/18 17:26 98.6 F 70 18 131/72 99 Laboratory Results - last 24 hr 03/11/18 08:15 Hemoglobin A1c 4.9 Labs reviewed. Review of Systems All other systems reviewed negative except as stated in HPI Mental Status Examination Appearance: Appropriate Consciousness: Alert Orientation: Person, Place (At least) Motor Activity: Normal gait, Other (No motor abnormalities noted. No ictal activity noted.) Speech: Unremarkable Language: Adequate Fund of Knowledge: Adequate Attention and Concentration: Adequate Memory: Unremarkable (Grossly intact on clinical exam) Mood: Irritable, Other (Remains dysphoric) Affect: Irritable, Other (Dysphoric) Thought Process & Associations: Intact, Logical, Linear Thought Content: Appropriate Hallucination Type: None Delusion Type: None Suicidal Ideation: No Suicidal Plan: No Suicidal Intention: No Homicidal Ideation: No Homicidal Plan: No Homicidal Intention: No Insight: Fair Judgment: Impulsive Assessment and Plan - Assessment (1) Adjustment disorder with depressed mood Code(s): F43.21 - Adjustment disorder with depressed mood Status: Acute (2) Alcohol use disorder, moderate, dependence Code(s): F10.20 - Alcohol dependence, uncomplicated Status: Acute - Plan Plan: Continue to suspect some degree of secondary gain. Continue Zoloft as ordered. Continue to monitor on the inpatient unit. Hospitalist input noted and appreciated. Continue other medications and care as ordered. Justification for Continued Inpatient Stay: Monitoring for ongoing impairment in safety, none noted. Risk for decompensation in less restrictive setting. Discharge Planning: Pending further inpatient observation. Request Healthcare Surrogate/Guardian Advocate?: No
[2018-03-13] MEDS: Sertraline 50 MG Tablet PO SCH (09:03)
--- NOTE | 2018-03-13 11:15 | P.PNIM ---
Subjective Interval history: in no acute distress. still feels depresses. d/w the RN and no acute issues over night. Physical Exam Vital signs: Vital Signs 03/12/18 18:39 03/13/18 06:00 Temperature 97.7 F Pulse Rate 68 57 L Respiratory Rate 18 17 Blood Pressure 116/73 128/65 Pulse Oximetry 99 98 - Constitutional no acute distress - Routine Respiratory Exam Present: CTA bilaterally - Routine Cardiovascular Exam Present: RRR - Routine Abdominal Exam Present: soft - Routine Extremities Exam Comments: no pedal edema. - Routine Neurological Exam Present: alert, oriented X3 Results - Labs CBC & Chem 7: 03/11/18 08:15 Assessment and Plan - Plan A/P - adjustment disorder with depressed mood; management per psych -history of TBI/ seizure disorder; keppra level 105 ( 03/09); will hold Keppra and repeat the level today. case was d/w the poison control today.
--- NOTE | 2018-03-13 18:52 | P.PNPSY ---
Subjective Chief Complaint: Malcolm Act Remarks: Reviewed electronic medical records and discussed case with staff. Follow-up was conducted in the hallway with MARYANN Hollingsworth present. She reports the patient's been compliant with his medication and has had no behavioral disturbances. Patient seems extremely irritable. He states that his mood is "same as yesterday". He goes off on a tangent about the [employer] and not receiving his SSI. States is not sleeping well and his appetite has not been very good. I did order acetaminophen for him for his reports of pain. Mental Status Examination Appearance: Appropriate Consciousness: Alert Orientation: Person, Place (At least) Motor Activity: Normal gait, Other (No motor abnormalities noted. No ictal activity noted.) Speech: Unremarkable Language: Adequate Fund of Knowledge: Adequate Attention and Concentration: Adequate Memory: Unremarkable (Grossly intact on clinical exam) Mood: Irritable, Other (Remains dysphoric) Affect: Irritable, Other (Dysphoric) Thought Process & Associations: Intact, Logical, Linear Thought Content: Appropriate Hallucination Type: None Delusion Type: None Suicidal Ideation: No Suicidal Plan: No Suicidal Intention: No Homicidal Ideation: No Homicidal Plan: No Homicidal Intention: No Insight: Fair Judgment: Impulsive Assessment and Plan - Assessment (1) Adjustment disorder with depressed mood Code(s): F43.21 - Adjustment disorder with depressed mood Status: Acute - Plan Plan: Patient will be reevaluated Thursday by the attending psychiatrist. Continue with current treatment plan. Justification for Continued Inpatient Stay: Moving this patient to a less restrictive environment would likely result in decompensation. Request Healthcare Surrogate/Guardian Advocate?: No
[2018-03-13] MEDS: Acetaminophen 500 MG Tablet PO PRN (22:35)
[2018-03-14] MEDS: Sertraline 50 MG Tablet PO SCH (08:44)
[2018-03-14] MEDS: Acetaminophen 500 MG Tablet PO PRN ×2 (08:48→22:05)
--- NOTE | 2018-03-14 16:41 | P.PNPSY ---
Subjective Chief Complaint: Malcolm Act Remarks: Reviewed electronic medical records and discussed case with staff. Follow-up was conducted in patient's room . Patient is very quiet and cooperative. States that he has been very sleepy. He is eating well. He is somewhat seclusive. Patient voices no concerns or complaints. He is medication compliant. Review of Systems All other systems reviewed negative except as stated in HPI Mental Status Examination Appearance: Appropriate Consciousness: Alert Orientation: Person, Place (At least) Motor Activity: Normal gait, Other (No motor abnormalities noted. No ictal activity noted.) Speech: Unremarkable Language: Adequate Fund of Knowledge: Adequate Attention and Concentration: Adequate Memory: Unremarkable (Grossly intact on clinical exam) Mood: Appropriate Affect: Appropriate Thought Process & Associations: Intact, Logical, Linear Thought Content: Appropriate Hallucination Type: None Delusion Type: None Suicidal Ideation: No Suicidal Plan: No Suicidal Intention: No Homicidal Ideation: No Homicidal Plan: No Homicidal Intention: No Insight: Fair Judgment: Impulsive Assessment and Plan - Assessment (1) Adjustment disorder with depressed mood Code(s): F43.21 - Adjustment disorder with depressed mood Status: Acute - Plan Plan: Patient will be reevaluated Thursday by the attending psychiatrist. Continue with current treatment plan. Justification for Continued Inpatient Stay: Moving patient to a less restrictive environment may result in his decompensation. Request Healthcare Surrogate/Guardian Advocate?: No
[2018-03-14] MEDS: Melatonin 5 MG Tablet PO PRN (22:07)
[2018-03-15] MEDS: Sertraline 50 MG Tablet PO SCH (09:14)
--- NOTE | 2018-03-15 11:28 | P.PNPSY ---
Subjective Chief Complaint: Malcolm Act Remarks: Patient seen and examined with nurse. Chart reviewed. Case discussed with nursing staff who reports patient is somewhat irritable and entitled. Case discussed with counselor who is working on discharge planning. On my examination today, the patient says that his mood "still sucks" although he denies suicidal ideation at this time. He denies audiovisual hallucinations. He remains open to allowing us to assist with disposition and in particular placement in a chemical dependency program but only if his disability check has not come in. Malingering for prison is still strongly suspected. Denies side effects from medications. No physical complaints. Vital Signs Temp Pulse Resp BP Pulse Ox 03/15/18 06:00 98 F 60 18 138/82 98 03/14/18 19:02 98.8 F 99 H 102/55 L 99 Intake and Output 03/14/18 03/15/18 03/15/18 22:59 06:59 14:59 Other: Weight 95.2 kg Labs reviewed. No new labs. Review of Systems All other systems reviewed negative except as stated in HPI Mental Status Examination Appearance: Appropriate Consciousness: Alert Orientation: Person, Place (At least) Motor Activity: Normal gait, Other (No abnormal motor movements noted. No ictal activity noted. No signs of withdrawal noted.) Speech: Unremarkable Language: Adequate Fund of Knowledge: Adequate Attention and Concentration: Adequate Memory: Unremarkable (Grossly intact on clinical exam) Mood: Other (Somewhat dysphoric and irritable) Affect: Other (Consistent with mood) Thought Process & Associations: Intact, Logical, Linear Thought Content: Appropriate Hallucination Type: None Delusion Type: None Suicidal Ideation: No Suicidal Plan: No Suicidal Intention: No Homicidal Ideation: No Homicidal Plan: No Homicidal Intention: No Insight: Fair Judgment: Impulsive Assessment and Plan - Assessment (1) Adjustment disorder with depressed mood Code(s): F43.21 - Adjustment disorder with depressed mood Status: Acute (2) Alcohol use disorder, moderate, dependence Code(s): F10.20 - Alcohol dependence, uncomplicated Status: Acute - Plan Plan: Titrate Zoloft to 100 mg daily to target dysphoria. Continue to monitor on the inpatient unit. Continue other medications and care as ordered. Justification for Continued Inpatient Stay: Medication changes. Risk for decompensation in less restrictive environment. Discharge Planning: Possible CD program placement. Case d/w counselor. Request Healthcare Surrogate/Guardian Advocate?: No
--- NOTE | 2018-03-15 12:53 | P.PNADD ---
Addendum to Inpatient Note Reason for Addendum: Additional Documentation (Keppra level still pending. Chart reviewed. Pateint appears stable. Will follow up once Keppra level results.)
[2018-03-16] MEDS: Sertraline 100 MG Tablet PO SCH (09:06)
--- NOTE | 2018-03-16 10:51 | P.PNPSY ---
Subjective Chief Complaint: Malcolm Act Remarks: Patient seen and examined with nurse and counselor. Chart reviewed. Case discussed with nursing staff. No behavioral issues noted overnight. Case discussed in treatment team. On my examination today, the patient remains quite manipulative. Primary concerns seem to be obtaining disability and housing. He does not verbalize any active SI or HI on the inpatient unit but when asked if he would experience these in less restrictive setting, he replies "I can't say." Likewise, when asked if he could return to the ED if he were experiencing serious psychiatric symptoms he replies in a similar, noncommittal fashion. Denies side effects from medications. No physical complaints. Vital Signs Temp Pulse Resp BP Pulse Ox 03/16/18 06:10 98.7 F 71 18 103/62 96 Laboratory Results - last 24 hr 03/13/18 09:07 Levetiracetam 7.2 L Labs reviewed. Keppra level somewhat low. Defer to hospitalist for adjustment of this medication. Review of Systems All other systems reviewed negative except as stated in HPI Mental Status Examination Appearance: Appropriate Consciousness: Alert Orientation: Person, Place (At least) Motor Activity: Other (No motor abnormalities noted. No ictal activity noted.) Speech: Unremarkable Language: Adequate Fund of Knowledge: Adequate Attention and Concentration: Adequate Memory: Unremarkable (Grossly intact on clinical exam) Mood: Other (Mildly dysphoric) Affect: Other (Again consistent with mood) Thought Process & Associations: Intact, Logical, Linear Thought Content: Appropriate Hallucination Type: None Delusion Type: None Suicidal Ideation: No Homicidal Ideation: No Insight: Fair Judgment: Impulsive Assessment and Plan - Assessment (1) Adjustment disorder with depressed mood Code(s): F43.21 - Adjustment disorder with depressed mood Status: Acute (2) Alcohol use disorder, moderate, dependence Code(s): F10.20 - Alcohol dependence, uncomplicated Status: Acute - Plan Plan: Strong suspicion for malingering at this point. It is hoped that the business planner will be able to offer some sort of placement or other accommodation. Otherwise, it is possible that the patient may continue to make self-harm gestures to facilitate readmission to the inpatient unit. Continue Zoloft as ordered. Continue to monitor on the inpatient unit. Hospitalist input appreciated. Continue other medications and care as ordered. Justification for Continued Inpatient Stay: Risk for decompensation in less restrictive environment. Discharge Planning: Pending further discharge planning. Case discussed with counselor. Request Healthcare Surrogate/Guardian Advocate?: No
--- NOTE | 2018-03-16 11:59 | P.PN ---
Subjective Interval history: Follow-up visit for Keppra overdose. Spoke with nurse who does not report any acute events overnight or this morning, Keppra level drawn this a.m. Patient is seen and examined in his room in no acute distress, reports that he does not remember taking medications. Denies any fevers, chills, nausea, vomiting or diarrhea. Physical Exam Vital signs: Vital Signs 03/16/18 06:10 Temperature 98.7 F Pulse Rate 71 Respiratory Rate 18 Blood Pressure 103/62 Pulse Oximetry 96 Narrative: GENERAL: This is a well-nourished, well-developed patient, in no apparent distress. CARDIOVASCULAR: Regular rate and rhythm without murmurs, gallops, or rubs. RESPIRATORY: Clear to auscultation. Breath sounds equal bilaterally. No wheezes , rales, or rhonchi. GASTROINTESTINAL: Abdomen soft, non-tender, nondistended. Normal active bowel sounds MUSCULOSKELETAL: Extremities without clubbing, cyanosis, or edema. NEURO: Alert and alert oriented to place and self. Moves all ext x4 Results - Labs CBC & Chem 7: 03/11/18 08:15 Assessment and Plan - Plan 52-year-old male with past medical history of adjustment disorder, alcohol abuse , and TBI who was originally admitted to medical floor due to overdose of Keppra. Patient was cleared medically and discharged to inpatient psychiatry unit. [facility] consulted to assist with ongoing medical management after overdose. Adjustment disorder -Treatment plan per primary team, greatly appreciated History of TBI with seizure disorder -Overdose on Keppra with levels as high as 105.6 -Patient followed by poison control center. Recheck Keppra draw from 03/13 pending this a.m and resulted later today, at 7.2 -Resume Keppra, recheck levels tomorrow. DVT prophylaxisambulation Discussed Condition With: Discussed with patient and RN
[2018-03-16] MEDS: Melatonin 5 MG Tablet PO PRN (21:47)
[2018-03-17] MEDS: levETIRAcetam 500 MG Tablet PO SCH ×3 (04:58→20:35)
[2018-03-17] MEDS: Sertraline 100 MG Tablet PO SCH (08:31)
--- NOTE | 2018-03-17 10:57 | P.PN ---
Subjective Interval history: Follow-up Keppra overdose. Patient seen and examined in the [facility] participating in occupational therapy. He reports that he is feeling better today and is remembering more of what has happened recently. Patient also voices the fact that he would like to remain sober once he leaves psychiatric facility. He denies any fevers, chills, nausea, vomiting, diarrhea, cough, shortness of breath or chest pain. No acute events reported by nursing staff. Discussed with nurse administration of Keppra since level from 03/13 was low. Physical Exam Vital signs: Vital Signs 03/16/18 18:34 03/17/18 05:39 Temperature 99.8 F H 98.1 F Pulse Rate 83 73 Respiratory Rate 18 18 Blood Pressure 126/75 128/75 Pulse Oximetry 98 98 Narrative: GENERAL: This is a well-nourished, well-developed patient, in no apparent distress. CARDIOVASCULAR: Regular rate and rhythm without murmurs, gallops, or rubs. RESPIRATORY: Clear to auscultation. Breath sounds equal bilaterally. No wheezes , rales, or rhonchi. GASTROINTESTINAL: Abdomen soft, non-tender, nondistended. Normal active bowel sounds MUSCULOSKELETAL: Extremities without clubbing, cyanosis, or edema. NEURO: Alert and alert oriented to place and self. Moves all ext x4 Results - Labs CBC & Chem 7: 03/11/18 08:15 Laboratory Results - last 24 hr 03/13/18 09:07 Levetiracetam 7.2 L Assessment and Plan - Plan 52-year-old male with past medical history of adjustment disorder, alcohol abuse , and TBI who was originally admitted to medical floor due to overdose of Keppra. Patient was cleared medically and discharged to inpatient psychiatry unit. [facility] consulted to assist with ongoing medical management after overdose. Adjustment disorder -Treatment plan per primary team, greatly appreciated History of TBI with seizure disorder -Overdose on Keppra with levels as high as 105.6 -Patient followed by poison control center. Recheck Keppra draw from 03/13 7.2 -Resume Keppra. DVT prophylaxisambulation [facility] will sign off, please reconsult if needed. Discussed Condition With: Patient and nursing staff.
--- NOTE | 2018-03-17 11:47 | P.PNPSY ---
Subjective Chief Complaint: Malcolm Act Remarks: Patient seen and examined with nurse. Chart reviewed. Case discussed with nursing staff who reports patient's affect is brighter and he is more future oriented. Case discussed with counselor supervisor sample who is working on discharge planning for the patient. On my examination today, the patient says that he is feeling "a lot better." He said he had a good night sleep. His affect does indeed seem brighter. No SI or HI. Denies side effects from medications. No physical complaints. Vital Signs Temp Pulse Resp BP Pulse Ox 03/17/18 05:39 98.1 F 73 18 128/75 98 03/16/18 18:34 99.8 F H 83 18 126/75 98 Labs reviewed. Review of Systems All other systems reviewed negative except as stated in HPI Mental Status Examination Appearance: Appropriate Consciousness: Alert Orientation: Person, Place (At least) Motor Activity: Other (No ictal activity noted. No motoric abnormality noted.) Speech: Unremarkable Language: Adequate Fund of Knowledge: Adequate Attention and Concentration: Adequate Memory: Unremarkable (Grossly intact on clinical exam) Mood: Appropriate Affect: Appropriate Thought Process & Associations: Intact, Logical, Linear Thought Content: Appropriate Hallucination Type: None Delusion Type: None Suicidal Ideation: No Homicidal Ideation: No Insight: Fair Judgment: Impulsive Assessment and Plan - Assessment (1) Adjustment disorder with depressed mood Code(s): F43.21 - Adjustment disorder with depressed mood Status: Acute (2) Alcohol use disorder, moderate, dependence Code(s): F10.20 - Alcohol dependence, uncomplicated Status: Acute - Plan Plan: Continue Zoloft as ordered. Patient seems to be improving with this medication. Continue to monitor on the inpatient unit. Hospitalist input noted and appreciated. Continue other medications and care as ordered. Justification for Continued Inpatient Stay: Pending finalization of discharge planning Discharge Planning: Counselor working to finalize discharge planning Request Healthcare Surrogate/Guardian Advocate?: No
[2018-03-17] MEDS: Melatonin 5 MG Tablet PO PRN (20:35)
[2018-03-18 06:13] VITALS: BP 151/84; PULSE 50; RESP 16; TEMP 98.2; O2SAT 100
[2018-03-18] MEDS: levETIRAcetam 500 MG Tablet PO SCH (08:13)
[2018-03-18] MEDS: Sertraline 100 MG Tablet PO SCH (08:13)
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
== END 2018-03-18 16:06 | disposition home or self-care (01) ==
LOC: H270 15:12
PROVIDERS: ADMIT Psychiatry & Neurology Psychiatry; ATTEND Psychiatry & Neurology Psychiatry